=== PATIENT | female | born 2000 | race Caucasian/White ===

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

== ENCOUNTER → 2024-12-17 09:27 | Outpatient (BNVA) | payer MEDICAID, SELFPAY | PROVIDERS: Visit Provider Nurse Practitioner Women's Health | DX: Z34.80 Encounter for supervision of other normal pregnancy, unspecified trimester (principal); Z34.90 Encounter for supervision of normal pregnancy, unspecified, unspecified trimester | CPT/HCPCS: 80307; 84315; 85025; 86592; 86762; 86803; 86850; 86900; 87086; 87340; 87806 ==

== ENCOUNTER → 2024-12-18 14:08 | Outpatient (BNVA) | payer MEDICAID, SELFPAY | PROVIDERS: Visit Provider Obstetrics & Gynecology | DX: Z34.90 Encounter for supervision of normal pregnancy, unspecified, unspecified trimester (principal); Z34.80 Encounter for supervision of other normal pregnancy, unspecified trimester; Z01.419 Encounter for gynecological examination (general) (routine) without abnormal findings | CPT/HCPCS: 84315; 87491; 87591; 87624; 87661 ==

== ENCOUNTER → 2025-01-13 11:15 | Outpatient (BNVA) | payer MEDICAID, SELFPAY | PROVIDERS: Visit Provider Obstetrics & Gynecology | DX: Z34.82 Encounter for supervision of other normal pregnancy, second trimester (principal) | CPT/HCPCS: 84315 ==

== ENCOUNTER 2025-02-10 15:20 | Outpatient (CLI) | payer MEDICAID, SELFPAY ==
--- NOTE | 2025-02-10 15:30 | USR_ITS ---
PROCEDURE INFORMATION: Exam: US After First Trimester, Transabdominal Exam date and time: 02/10/2025 4:01 PM Age: 24 years old Clinical indication: Screening exam; Routine US, uterus; Additional info: Z34.80 - encounter for supervision of other normal pregna. . . , LABS AND CLINICAL REPORTS: Last menstrual period start date: Unknown Gestational age (Established): 20 w 3 d Estimated due date (Established): 06/27/2025 TECHNIQUE: Imaging protocol: Real-time transabdominal obstetrical ultrasound of the maternal pelvis and a second or third trimester with image documentation. COMPARISON: No relevant prior studies available. FINDINGS: Gestation: Single IUP in cephalic presentation. heart rate: 141 bpm Placenta: Unremarkable. No subchorionic bleed. Placenta is posterior without evidence of previa.. Amniotic fluid (Qualitative): Amniotic fluid is normal for gestational age. Amniotic fluid index: Appears normal. ANATOMY: Normal anatomic survey is complete. Normal face, profile, nose/lips, cerebellum, cisterna magna, cavum septum pellucidum, lateral ventricles, choroid plexus, stomach, kidneys, bladder, three-vessel cord and cord insertion, spine, diaphragm, four-chamber heart, right and left ventricular outflow tracts, 4 extremities. BIOMETRY: Gestational age (AUA): 20 weeks 6 days +/-1 week and 3 days Estimated due date (AUA): 06/24/2025 Estimated weight: 396.93 g. EFW by AC, BPD, FL, HC, [place]lock 1985 Biparietal diameter (BPD): 5.06 cm. EGA (BPD) is 21 w 2 d. 82.8 % percentile Head circumference (HC): 19.11 cm. EGA (HC) is 21 w 3 d. 81.4 % percentile Abdominal circumference (AC): 16.4 cm. EGA (AC) is 21 w 3 d. 76.7 % percentile Femur length (FL): 3.35 cm. EGA (FL) is 20 w 3 d. 44.2 % percentile HC/AC: 1.17. (Normal range: 1.06 - 1.25) FL/HC: 17.53. (Normal range: 16.03 - 20.23) FL/BPD: 66.21 FL/AC: 20.43 MATERNAL: Uterus: Unremarkable. Cervix: Cervical length measures 4.1 cm. Right ovary/adnexa: Obscured by lack of adequate acoustic window. Left ovary/adnexa: Obscured by lack of adequate acoustic window. Intraperitoneal space: No intraperitoneal free fluid. US/US OB >= 14 weeks fetus [id number] IMPRESSION: Single normal-appearing IUP at 20 weeks 3 days at the 80th percentile of growth.
== END 2025-02-10 15:21 | disposition home or self-care (01) ==
LOC: RAD 15:20
PROVIDERS: Visit Provider Obstetrics & Gynecology
DX: Z34.82 Encounter for supervision of other normal pregnancy, second trimester (principal); Z3A.20 20 weeks gestation of pregnancy
CPT/HCPCS: 76805

== ENCOUNTER → 2025-02-12 13:43 | Outpatient (BNVA) | payer MEDICAID, SELFPAY | PROVIDERS: Visit Provider Obstetrics & Gynecology | DX: Z34.82 Encounter for supervision of other normal pregnancy, second trimester (principal) | CPT/HCPCS: 84315 ==

== ENCOUNTER → 2025-04-07 13:15 | Outpatient (BNVA) | payer MEDICAID, SELFPAY | PROVIDERS: Visit Provider Obstetrics & Gynecology | DX: Z34.90 Encounter for supervision of normal pregnancy, unspecified, unspecified trimester (principal); Z3A.28 28 weeks gestation of pregnancy | CPT/HCPCS: 82950; 84315; 85025 ==

== ENCOUNTER → 2025-05-05 14:54 | Outpatient (BNVA) | payer MEDICAID, SELFPAY | PROVIDERS: Visit Provider Obstetrics & Gynecology | DX: Z34.93 Encounter for supervision of normal pregnancy, unspecified, third trimester (principal); Z3A.32 32 weeks gestation of pregnancy | CPT/HCPCS: 84315 ==